=== PATIENT | female | born 1975 | race Two or more races ===

== ENCOUNTER 2019-06-09 18:00 | Emergency (ER) | payer SELFPAY ==
[~2019-06-09] VITALS: Ht 162.6 cm; Wt 56.7 kg
--- NOTE | 2019-06-09 19:25 | NUR ---
BIBS. C/O "HAVING SORE THROAT FOR X4 DAYS, NO RELIEF FROM TAKING AMOXICILLIN" -SOB aox4. vss
[2019-06-09] MEDS ORDERED: IPRATROPIUM NEB FS 0.5 MG/2.5 ML AMPUL.NEB ONE (19:50)
[2019-06-09] MEDS ORDERED: ALBUTEROL FS 2.5 MG/3 ML VIAL.NEB ONE (19:50)
[2019-06-09] MEDS ORDERED: IPRATROPIUM NEB FS 0.5 MG/2.5 ML AMPUL.NEB NEB ONE (20:00)
[2019-06-09] MEDS ORDERED: ALBUTEROL FS 2.5 MG/3 ML VIAL.NEB NEB ONE (20:00)
[2019-06-09] MEDS ORDERED: predniSONE 20 MG TABLET ONE (20:50)
[2019-06-09 20:59] VITALS: BP 112/77
[2019-06-09] MEDS ORDERED: predniSONE 20 MG TABLET PO ONE (21:00)
== END 2019-06-09 21:01 | disposition home or self-care (01) ==
LOC: ER 18:00
DX: J45.901 Unspecified asthma with (acute) exacerbation (principal); J06.9 Acute upper respiratory infection, unspecified
CPT/HCPCS: 71045; 94640; 99283; J7512